=== PATIENT | female | born 1945 | race Caucasian/White ===

== ENCOUNTER 2017-10-29 11:08 | Outpatient (CLI) | payer OTHER ==
[~2017-10-29 11:08] MED LIST: ASA81 MG; ATACAND4 MG; CIPRO500 MG PO; FOSAMAX70 MG; LEVSIN0.125 MG PO; MONTELUKAST SOD10 MG; NABUMETONE500 MG PO; PERCOCET 5/3251 TAB PO; PROVENTIL HFA6.7 GM IH; PROVENTIL3 ML/2.5 M IH; SENOKOT8.6 MG PO; SIMVASTATIN40 MG; SYMBYAX; ZANTAC300 MG PO; ZOFRAN4 MG PO; ZYNCOF 20-400120 ML PO
== END 2017-10-29 11:15 | disposition home or self-care (01) ==
LOC: LAB 11:08
DX: Z68.27 Body mass index [BMI] 27.0-27.9, adult (principal); I10 Essential (primary) hypertension; E78.2 Mixed hyperlipidemia; J45.20 Mild intermittent asthma, uncomplicated; M12.9 Arthropathy, unspecified; M81.0 Age-related osteoporosis without current pathological fracture; Z94.7 Corneal transplant status; D64.89 Other specified anemias; E78.5 Hyperlipidemia, unspecified; N39.0 Urinary tract infection, site not specified; K92.1 Melena; Z12.11 Encounter for screening for malignant neoplasm of colon; E03.0 Congenital hypothyroidism with diffuse goiter; E03.9 Hypothyroidism, unspecified

== ENCOUNTER 2017-10-30 14:56 | Outpatient (CLI) | payer OTHER | END 2017-10-30 15:13 | disposition home or self-care (01) | LOC: LAB 14:56 | DX: Z68.27 Body mass index [BMI] 27.0-27.9, adult (principal); I10 Essential (primary) hypertension; E78.2 Mixed hyperlipidemia; J45.20 Mild intermittent asthma, uncomplicated; M12.9 Arthropathy, unspecified; M81.0 Age-related osteoporosis without current pathological fracture; Z94.7 Corneal transplant status; N39.0 Urinary tract infection, site not specified; D64.89 Other specified anemias; K92.1 Melena; Z12.11 Encounter for screening for malignant neoplasm of colon; E11.65 Type 2 diabetes mellitus with hyperglycemia; E03.0 Congenital hypothyroidism with diffuse goiter ==

== ENCOUNTER 2018-01-12 07:38 | Outpatient (CLI) | payer OTHER | END 2018-01-12 07:52 | disposition home or self-care (01) | LOC: TOM 07:38 | DX: E78.2 Mixed hyperlipidemia (principal); I10 Essential (primary) hypertension; Z68.27 Body mass index [BMI] 27.0-27.9, adult; J45.20 Mild intermittent asthma, uncomplicated; M12.89 Other specific arthropathies, not elsewhere classified, multiple sites; M81.0 Age-related osteoporosis without current pathological fracture | CPT/HCPCS: 74177; Q9965 ==

== ENCOUNTER → 2018-01-15 | Outpatient (CLI) | payer OTHER | END | disposition home or self-care (01) | LOC: LAB 10:21 | DX: E78.2 Mixed hyperlipidemia (principal); E78.5 Hyperlipidemia, unspecified; E78.9 Disorder of lipoprotein metabolism, unspecified; R74.0 Nonspecific elevation of levels of transaminase and lactic acid dehydrogenase [LDH]; Z68.27 Body mass index [BMI] 27.0-27.9, adult; I10 Essential (primary) hypertension; J45.20 Mild intermittent asthma, uncomplicated; M81.0 Age-related osteoporosis without current pathological fracture; Z94.7 Corneal transplant status; M12.88 Other specific arthropathies, not elsewhere classified, other specified site ==

== ENCOUNTER 2018-06-25 10:33 | Outpatient (CLI) | payer OTHER | END 2018-06-25 10:46 | disposition home or self-care (01) | LOC: NUCLEAR 10:33 | DX: M81.0 Age-related osteoporosis without current pathological fracture (principal); Z68.27 Body mass index [BMI] 27.0-27.9, adult; I10 Essential (primary) hypertension; E78.2 Mixed hyperlipidemia; I70.0 Atherosclerosis of aorta; J45.20 Mild intermittent asthma, uncomplicated; K57.30 Diverticulosis of large intestine without perforation or abscess without bleeding; K59.00 Constipation, unspecified; M12.9 Arthropathy, unspecified; Z94.7 Corneal transplant status ==

== ENCOUNTER 2018-06-25 11:40 | Outpatient (CLI) | payer OTHER | END 2018-06-25 11:58 | disposition home or self-care (01) | LOC: RAD 11:40 | DX: Z12.31 Encounter for screening mammogram for malignant neoplasm of breast (principal); Z87.898 Personal history of other specified conditions; Z68.27 Body mass index [BMI] 27.0-27.9, adult; I10 Essential (primary) hypertension; E78.2 Mixed hyperlipidemia; M12.9 Arthropathy, unspecified; N64.89 Other specified disorders of breast; R92.2 Inconclusive mammogram ==

== ENCOUNTER 2018-10-27 11:10 | Outpatient (CLI) | payer OTHER | END 2018-10-27 11:15 | disposition home or self-care (01) | LOC: RAD 11:10 | DX: J45.41 Moderate persistent asthma with (acute) exacerbation (principal) ==

== ENCOUNTER 2018-11-02 13:32 | Emergency (ER) | payer OTHER ==
[~2018-11-02] VITALS: Ht 149.9 cm; Wt 62.6 kg
== END 2018-11-02 15:06 | disposition home or self-care (01) ==
LOC: ER 13:32
DX: R06.02 Shortness of breath (principal)

== ENCOUNTER 2018-12-02 08:34 | Outpatient (CLI) | payer OTHER | END 2018-12-02 08:37 | disposition home or self-care (01) | LOC: SONOGRAMA 08:34 | DX: E04.8 Other specified nontoxic goiter (principal) ==

== ENCOUNTER 2019-06-17 16:49 | Emergency (ER) | payer OTHER ==
[~2019-06-17] VITALS: Ht 152.4 cm; Wt 63.5 kg
[~2019-06-17 16:49] MED LIST changes: -ATACAND4 MG; +ATACAND4 MG PO
[2019-06-17] MEDS ORDERED: SIMBICORT (17:22)
[2019-06-17] MEDS ORDERED: ASA81 MG PO (17:22)
[2019-06-17] MEDS ORDERED: ATACAND16 MG PO (17:22)
[2019-06-17] MEDS ORDERED: SINGULAIR10 MG PO (17:23)
[2019-06-17] MEDS ORDERED: ZOCOR40 MG (17:23)
[2019-06-17] MEDS ORDERED: NABUMETONE750 MG PO (17:24)
[2019-06-17] MEDS ORDERED: TYLENOL325 MG PO (17:24)
== END 2019-06-17 21:06 | disposition home or self-care (01) ==
LOC: ER 16:49
DX: M10.071 Idiopathic gout, right ankle and foot (principal)

== ENCOUNTER 2019-06-20 15:35 | Emergency (ER) | payer OTHER ==
[~2019-06-20] VITALS: Ht 152.4 cm; Wt 63.5 kg
[~2019-06-20 15:35] MED LIST changes: +ASA81 MG PO; +ATACAND16 MG PO; +NABUMETONE750 MG PO; +SIMBICORT; +SINGULAIR10 MG PO; +TYLENOL325 MG PO; +ZOCOR40 MG
== END 2019-06-20 19:16 | disposition home or self-care (01) ==
LOC: ER 15:35
DX: S93.491A Sprain of other ligament of right ankle, initial encounter (principal); R60.0 Localized edema; X58.XXXA Exposure to other specified factors, initial encounter; Y93.89 Activity, other specified; Y92.89 Other specified places as the place of occurrence of the external cause; Y99.8 Other external cause status

== ENCOUNTER 2019-10-21 14:09 | Outpatient (CLI) | payer OTHER | END 2019-10-21 14:56 | disposition home or self-care (01) | LOC: MRI 14:09 | DX: E78.2 Mixed hyperlipidemia (principal); Z68.28 Body mass index [BMI] 28.0-28.9, adult; I10 Essential (primary) hypertension; Z96.659 Presence of unspecified artificial knee joint; M12.88 Other specific arthropathies, not elsewhere classified, other specified site | CPT/HCPCS: 72148 ==

== ENCOUNTER 2019-12-01 15:21 | Emergency (ER) | payer OTHER ==
[~2019-12-01] VITALS: Ht 152.4 cm; Wt 63.5 kg
== END 2019-12-01 17:40 | disposition home or self-care (01) ==
LOC: ER 15:21
DX: G43.909 Migraine, unspecified, not intractable, without status migrainosus (principal); G50.0 Trigeminal neuralgia

== ENCOUNTER 2020-02-28 12:22 | Outpatient (CLI) | payer OTHER | END 2020-02-28 12:26 | disposition home or self-care (01) | LOC: RAD 12:22 | PROVIDERS: ATTEND Orthopaedic Surgery Orthopaedic Surgery of the Spine | DX: M43.16 Spondylolisthesis, lumbar region (principal) ==

== ENCOUNTER 2020-06-26 08:48 | Outpatient (CLI) | payer OTHER | END 2020-06-26 08:51 | disposition home or self-care (01) | LOC: MAMO-SONO 08:48 | PROVIDERS: ATTEND Specialist | DX: Z12.31 Encounter for screening mammogram for malignant neoplasm of breast (principal); N60.02 Solitary cyst of left breast; N64.4 Mastodynia; I10 Essential (primary) hypertension; Z68.28 Body mass index [BMI] 28.0-28.9, adult; E78.2 Mixed hyperlipidemia; M12.88 Other specific arthropathies, not elsewhere classified, other specified site; M43.06 Spondylolysis, lumbar region; M54.16 Radiculopathy, lumbar region; Z96.659 Presence of unspecified artificial knee joint; D44.3 Neoplasm of uncertain behavior of pituitary gland ==

== ENCOUNTER 2020-09-20 20:45 | Emergency (ER) | payer OTHER ==
[~2020-09-20] VITALS: Ht 152.4 cm; Wt 65.3 kg
[2020-09-20] MEDS ORDERED: MONTELUKAST SOD10 MG PO (21:32)
[2020-09-20] MEDS ORDERED: SYMBICORT 16010.2 GM IH (21:32)
== END 2020-09-21 01:10 ==
LOC: ER 20:45
DX: R50.9 Fever, unspecified (principal); M79.18 Myalgia, other site; Z20.828 Contact with and (suspected) exposure to other viral communicable diseases

== ENCOUNTER 2020-11-21 14:46 | Outpatient (CLI) | payer OTHER ==
[~2020-11-21 14:46] MED LIST changes: +MONTELUKAST SOD10 MG PO; +SYMBICORT 16010.2 GM IH
== END 2020-11-21 14:53 | disposition home or self-care (01) ==
LOC: RAD 14:46
DX: J45.40 Moderate persistent asthma, uncomplicated (principal)

== ENCOUNTER 2021-03-08 12:17 | Outpatient (CLI) | payer OTHER | END 2021-03-08 12:22 | disposition home or self-care (01) | LOC: LAB 12:17 | PROVIDERS: ATTEND Radiology Diagnostic Radiology | DX: R10.31 Right lower quadrant pain (principal); Z51.81 Encounter for therapeutic drug level monitoring ==

== ENCOUNTER 2021-03-13 07:30 | Outpatient (CLI) | payer OTHER | END 2021-03-13 07:40 | disposition home or self-care (01) | LOC: TOM 07:30 | PROVIDERS: ATTEND Internal Medicine Gastroenterology | DX: R10.31 Right lower quadrant pain (principal); R10.33 Periumbilical pain ==

== ENCOUNTER 2021-06-21 12:17 | Outpatient (CLI) | payer OTHER | END 2021-06-21 12:31 | disposition home or self-care (01) | LOC: MRI 12:17 | DX: M48.062 Spinal stenosis, lumbar region with neurogenic claudication (principal); M99.53 Intervertebral disc stenosis of neural canal of lumbar region; M54.5 Low back pain | CPT/HCPCS: 72148 ==

== ENCOUNTER 2021-06-21 14:10 | Outpatient (CLI) | payer OTHER | END 2021-06-21 15:01 | disposition home or self-care (01) | LOC: EKG 14:10 | DX: I10 Essential (primary) hypertension (principal); M48.062 Spinal stenosis, lumbar region with neurogenic claudication ==

== ENCOUNTER 2021-12-17 12:07 | Outpatient (CLI) | payer OTHER | END 2021-12-17 12:10 | disposition home or self-care (01) | LOC: RAD 12:07 | DX: M43.27 Fusion of spine, lumbosacral region (principal) ==

== ENCOUNTER 2022-01-18 15:20 | Outpatient (CLI) | payer OTHER | END 2022-01-18 15:27 | disposition home or self-care (01) | LOC: RAD 15:20 | PROVIDERS: ATTEND Ophthalmology | DX: I10 Essential (primary) hypertension (principal) ==

== ENCOUNTER 2022-09-06 17:27 | Emergency (ER) | payer OTHER ==
[~2022-09-06] VITALS: Ht 180.3 cm; Wt 65.8 kg
[2022-09-06] MEDS ORDERED: DICLOFENAC POTA50 MG PO (22:13)
== END 2022-09-06 22:34 | disposition home or self-care (01) ==
LOC: ER 17:27
DX: M54.9 Dorsalgia, unspecified (principal); Z88.0 Allergy status to penicillin

== ENCOUNTER 2023-01-08 12:13 | Outpatient (CLI) | payer OTHER ==
[~2023-01-08 12:13] MED LIST changes: +DICLOFENAC POTA50 MG PO
== END 2023-01-08 12:26 | disposition home or self-care (01) ==
LOC: MAMO-SONO 12:13
PROVIDERS: ATTEND Specialist
DX: G44.319 Acute post-traumatic headache, not intractable (principal); N64.4 Mastodynia; N64.51 Induration of breast; R92.8 Other abnormal and inconclusive findings on diagnostic imaging of breast

== ENCOUNTER 2023-01-13 08:23 | Outpatient (CLI) | payer OTHER | END 2023-01-13 08:32 | disposition home or self-care (01) | LOC: SONOGRAMA 08:23 | PROVIDERS: ATTEND Specialist | DX: R10.84 Generalized abdominal pain (principal) ==

== ENCOUNTER 2023-05-02 13:07 | Outpatient (CLI) | payer OTHER | END 2023-05-02 13:12 | disposition home or self-care (01) | LOC: NUCLEAR 13:07 | PROVIDERS: ATTEND Obstetrics & Gynecology | DX: M81.0 Age-related osteoporosis without current pathological fracture (principal) ==

== ENCOUNTER 2023-06-10 12:04 | Emergency (ER) | payer OTHER ==
[~2023-06-10] VITALS: Ht 149.9 cm; Wt 62.1 kg
[2023-06-10] MEDS ORDERED: MEDROLPACK PO (21:02)
== END 2023-06-10 21:19 | disposition home or self-care (01) ==
LOC: ER 12:04
DX: M25.512 Pain in left shoulder (principal)
CPT/HCPCS: 73030; 96372; 99283; J1100

== ENCOUNTER 2023-07-10 15:31 | Emergency (ER) | payer OTHER ==
[~2023-07-10] VITALS: Ht 149.9 cm; Wt 60.8 kg
[~2023-07-10 15:31] MED LIST changes: +MEDROLPACK PO
[2023-07-10 16:59] LABS: HEMATOCRIT 31.1 % (36.0-45.00); HEMOGLOBIN 10.8 g/dL (12.0-15.00); MEAN CELL VOLUME 94.2 fL (80.00-100.00); MEAN CORPUSCULAR HEMOGLOBIN 32.5 pg (27.00-32.0); MEAN CORPUSCULAR HGB CONC 34.5 g/dl (32.0-36.0); PLATELET COUNT 239 K/uL (150-450); RED BLOOD COUNT 3.31 M/uL (4.00-6.00); RED CELL DISTRIBUTION WIDTH 13.1 % (11.5-14.5)
[2023-07-10 17:21] LABS: INR 1.03; PARTIAL THROMBOPLASTIN TIME 26.6 SECONDS (22.0-34.0); PROTHROMBIN TIME 10.8 SECONDS (9.0-11.5)
[2023-07-10 17:27] LABS: ALBUMIN 3.7 gm/dL (3.4-5.0); BILIRUBIN TOTAL 0.24 mg/dL (0.3-1.2); CALCIUM 9.2 mg/dL (8.5-10.1); CREATININE SERUM 1.11 mg/dL (0.55-1.02); GFR 47.42; GLOBULINA 3.7 G/DL (2.4-3.5); POTASSIUM 3.94 mEq/L (3.5-5.1); TOTAL PROTEIN 7.4 gm/dL (6.4-8.2)
== END 2023-07-10 21:00 | disposition home or self-care (01) ==
LOC: ER 15:31
PROVIDERS: General Practice
DX: R10.31 Right lower quadrant pain (principal); Z88.0 Allergy status to penicillin; J45.909 Unspecified asthma, uncomplicated; I10 Essential (primary) hypertension; K57.30 Diverticulosis of large intestine without perforation or abscess without bleeding
CPT/HCPCS: 36415; 74177; 96365; 96366; 99284; J1885; J3490; J7030; Q9965

== ENCOUNTER 2023-09-01 14:51 | Outpatient (CLI) | payer OTHER | END 2023-09-01 14:55 | disposition home or self-care (01) | LOC: RAD 14:51 | PROVIDERS: ATTEND Neuromusculoskeletal Medicine, Sports Medicine | DX: M17.0 Bilateral primary osteoarthritis of knee (principal) ==

== ENCOUNTER 2024-08-19 18:03 | Inpatient (IN) | payer OTHER ==
[~2024-08-19] VITALS: Ht 58.4 cm; Wt 57.2 kg
[2024-08-19] MEDS ORDERED: ASPIRIN 81 MG TAB.CHEW PO ONE (19:00)
[2024-08-19] MEDS ORDERED: NITROGLYCERIN 0.4 MG TAB.SUBL SL ONE (19:00)
[2024-08-19 19:08] LABS: HEMATOCRIT 32.1 % (36.0-45.00); HEMOGLOBIN 11.1 g/dL (12.0-15.00); MEAN CELL VOLUME 94.5 fL (80.00-100.00); MEAN CORPUSCULAR HEMOGLOBIN 32.8 pg (27.00-32.0); MEAN CORPUSCULAR HGB CONC 34.7 g/dl (32.0-36.0); PLATELET COUNT 230 K/uL (150-450); RED BLOOD COUNT 3.39 M/uL (4.00-6.00); RED CELL DISTRIBUTION WIDTH 13.2 % (11.5-14.5)
[2024-08-19 19:41] LABS: INR 1.05; PARTIAL THROMBOPLASTIN TIME 24.8 SECONDS (22.0-34.0); PROTHROMBIN TIME 11.4 SECONDS (9.0-11.5)
[2024-08-19 19:46] LABS: ALBUMIN 3.5 gm/dL (3.4-5.0); BILIRUBIN TOTAL 0.24 mg/dL (0.3-1.2); CALCIUM 8.8 mg/dL (8.5-10.1); CREATININE SERUM 0.86 mg/dL (0.55-1.02); GFR 63.49; GLOBULINA 3.3 G/DL (2.4-3.5); POTASSIUM 4.17 mEq/L (3.5-5.1); TOTAL PROTEIN 6.8 gm/dL (6.4-8.2)
[2024-08-19 21:01] LABS: URINE APPEARANCE Clear; URINE BILIRRUBIN Negative (NEGATIVE); URINE BLOOD Negative; URINE COLOR Yellow; URINE GLUCOSE Negative (NEGATIVE); URINE KETONE Negative (NEGATIVE); URINE LEUKOCYTE Negative; URINE NITRATE Negative; URINE PROTEIN Negative (NEGATIVE); URINE UROBILINOGEN 0.2 E.U./dl
[2024-08-19 21:02] LABS: URINE RBC 2.5 uL (0.0-20.8); URINE WBC 2.7 uL (0.0-23.2)
[2024-08-19 21:03] LABS: URINE BACTERIA 3.7 uL (0.0-1933)
[2024-08-19] MEDS ORDERED: ATORVASTATIN CALCIUM 40 MG TABLET PO SCH (21:27)
[2024-08-19] MEDS ORDERED: ACETAMINOPHEN 500 MG GEL..CAP PO PRN (21:30)
[2024-08-19] MEDS ORDERED: NITROGLYCERIN 0.4 MG/HR PATCH.TD24 TD ONE (21:30)
[2024-08-19] MEDS ORDERED: 0.9 % SODIUM CHLORIDE 1,000 ML IV SCH (21:30)
[2024-08-20] VITALS (9 sets, daily range): BP systolic 112–141; BP diastolic 46–70; O2SAT 96–99
[2024-08-20] MEDS ORDERED: ASPIRIN 81 MG TAB.CHEW PO SCH (09:00)
[2024-08-20] MEDS ORDERED: ENOXAPARIN SODIUM 40 MG/0.4 ML SYRINGE SUBCUTANEO SCH (09:00)
[2024-08-20] MEDS ORDERED: FAMOTIDINE/PF 20 MG in 0.9 % SODIUM CHLORIDE 8 ML IV PUSH SCH (09:00)
[2024-08-20] MEDS ORDERED: CANDESARTAN CILEXETIL 8 MG TAB PO SCH (09:00)
[2024-08-20] MEDS ORDERED: DIATRIZOATE MEGLUMINE, SODIUM 30 ML BOTTLE PO NR (13:00)
[2024-08-20] MEDS ORDERED: MONTELUKAST SODIUM 10 MG TABLET PO SCH (17:00)
[2024-08-20 17:41] LABS: CREATININE SERUM 0.82 mg/dL (0.55-1.02)
[2024-08-21 00:14] VITALS: BP 101/52
[2024-08-21 00:27] VITALS: O2SAT 97
[2024-08-21 04:18] VITALS: BP 110/58
[2024-08-21 05:23] VITALS: O2SAT 99
[2024-08-21 08:53] VITALS: BP 128/81; O2SAT 95
[2024-08-21 10:27] VITALS: O2SAT 99
== END 2024-08-21 11:44 | disposition home or self-care (01) | DRG 311 ==
LOC: ER 18:05 → MEDI 21:46
PROVIDERS: Nurse Practitioner Family; ADMIT Student in an Organized Health Care Education/Training Program; ATTEND Student in an Organized Health Care Education/Training Program
PROC: B246ZZZ Ultrasonography of Right and Left Heart (ICD-10-PCS; principal; 2024-08-19)
PROC: B020ZZZ Computerized Tomography (CT Scan) of Brain (ICD-10-PCS; 2024-08-19)
PROC: 4A12X4Z Monitoring of Cardiac Electrical Activity, External Approach (ICD-10-PCS; 2024-08-19)
PROC: BW21YZZ Computerized Tomography (CT Scan) of Abdomen and Pelvis using Other Contrast (ICD-10-PCS; 2024-08-20)
DX: I20.9 Angina pectoris, unspecified (principal); R55 Syncope and collapse; I10 Essential (primary) hypertension; R10.813 Right lower quadrant abdominal tenderness

== ENCOUNTER 2025-01-08 15:00 | Emergency (ER) | payer OTHER ==
[~2025-01-08] VITALS: Ht 149.9 cm; Wt 59.0 kg
[2025-01-08] MEDS ORDERED: CANDESARTAN CILE8 MG (16:22)
[2025-01-08] MEDS ORDERED: DIPHENHYDRAMINE HCL 50 MG CAPSULE PO STA (18:40)
[2025-01-08] MEDS ORDERED: DIPHENHYDRAMINE HCL 50 MG/ML VIAL 1ML ONE (18:50)
[2025-01-08] MEDS ORDERED: DIPHENHYDRAMINE HCL 50 MG/ML VIAL 1ML IV STA (18:56)
[2025-01-08 19:14] LABS: ERYTHROCYTE SEDIMENTATION RATE 21 mm/hr
[2025-01-08 19:21] LABS: HEMATOCRIT 35.7 % (36.0-45.00); MEAN CELL VOLUME 94.4 fL (80.00-100.00); MEAN CORPUSCULAR HEMOGLOBIN 31.7 pg (27.00-32.0); MEAN CORPUSCULAR HGB CONC 33.6 g/dl (32.0-36.0); PLATELET COUNT 208 K/uL (150-450); RED BLOOD COUNT 3.78 M/uL (4.00-6.00); RED CELL DISTRIBUTION WIDTH 12.7 % (11.5-14.5)
[2025-01-08] MEDS ORDERED: HYDROCORTISON28.4 G6 TOP (20:18)
[2025-01-08] MEDS ORDERED: ZYRTEC10 MG PO (20:18)
== END 2025-01-08 20:38 | disposition home or self-care (01) ==
LOC: ER 15:01
PROVIDERS: Preventive Medicine Public Health & General Preventive Medicine
DX: R21 Rash and other nonspecific skin eruption (principal); T78.40XA Allergy, unspecified, initial encounter; I10 Essential (primary) hypertension; Z88.0 Allergy status to penicillin

== ENCOUNTER 2025-03-21 14:18 | Outpatient (CLI) | payer OTHER ==
[~2025-03-21 14:18] MED LIST changes: +CANDESARTAN CILE8 MG; +HYDROCORTISON28.4 G6 TOP; +ZYRTEC10 MG PO
== END 2025-03-21 14:29 | disposition home or self-care (01) ==
LOC: RAD 14:18
PROVIDERS: ATTEND Neuromusculoskeletal Medicine, Sports Medicine
DX: M19.012 Primary osteoarthritis, left shoulder (principal); Z96.652 Presence of left artificial knee joint